=== PATIENT | female | born 1965 | race Caucasian/White ===

== ENCOUNTER 2024-01-19 09:41 | Emergency (ER) | payer OTHER, SELFPAY ==
[2024-01-19 09:47] VITALS: BP 115/65
--- NOTE | 2024-01-19 11:00 | ED.GENMED ---
History of Present Illness
General
Chief Complaint: Abdominal Pain
Source: patient
Exam Limitations: none
Time Seen by Provider: 01/19/24 10:51
History of Present Illness
History of Present Illness:
58-year-old female presents with 3 to 4 days worth of left-sided abdominal pain worse with eating. No nausea or vomiting. No fevers or chills. Seen initially at an urgent care and sent here for evaluation. She denies any urinary symptoms. No
prior abdominal surgical history. No other complaints at this time
Past History
Past History
ED Past Medical History: Cancer (skin), Other (Kidney stone, kidney cyst) and Other
Social History
Alcohol: None
Personal:
Living: with family
Employment: Employed
Phy Exam
Physical Exam
Physical Exam:
General: Well-appearing female no acute respiratory distress
HEENT: Normocephalic atraumatic
Heart: Regular rate and rhythm no murmurs
Lungs: Clear no wheeze
Abdomen soft tender to the left mid abdomen no guarding rebound normal bowel sounds nondistended no costovertebral angle tenderness
Extremities: No cyanosis
Course
Orders/Labs/Results
Orders:
Orders
01/19/24 10:59
CT Abd/pelvis W Iv Cont Urgent
Comment:
Reason For Exam: left abdominal pain
0.9% Sodium Chloride 500 ml [Nss] 500 ml IV BOLUS
Ketorolac [Toradol] 15 mg IV NOW STA
01/19/24 11:14
Complete Blood Count/With Diff Urgent
Comprehensive Metabolic Panel Urgent
Urinalysis Reflex To Culture Urgent
Date Specimen was Collected: 01/19/24
Time Specimen was Collected: 11:06
Abnormal Lab Results
01/19/24
11:14
Hct 36.1 L %
(37.0-47.0)
01/19/24 11:14
01/19/24 11:14
Vital Signs
Initial and Last Documented VS:
Initial Vital Signs
Temp Pulse Resp BP Pulse Ox
98.4 F 60 18 115/65 96
01/19/24 09:47 01/19/24 09:47 01/19/24 09:47 01/19/24 09:47 01/19/24 09:47
Last Documented Vital Signs
Temp Pulse Resp BP Pulse Ox
98.4 F 60 18 101/61 96
01/19/24 09:47 01/19/24 09:47 01/19/24 09:47 01/19/24 13:24 01/19/24 09:47
MDM/Problems Addressed
Differential Diagnosis Includes:
Left-sided abdominal pain. This is an acute condition. She does have a history of diverticulitis and this feels similar. This could be in the differential as well as colitis versus bowel obstruction versus renal colic
Will check labs. Give Toradol for pain and order CT of abdomen
*Critical Care Note
Total Time (30-74mins, 75-104mins- exclusive of procedures): Not Applicable
Update Note
Update Note:
CT demonstrates simple acute uncomplicated diverticulitis. Labs reviewed without significant finding. Patient remained stable. She had good relief 3 years ago when she was treated with Augmentin. Will cover with the same regimen. Return
precautions were given
ED Attending Note
-
Portions of this chart may have been created with voice recognition software.� Occasional wrong word or��sound alike� substitutions may have occurred due to the inherent limitations of voice recognition software.
Discharge Plan
Departure
Patient Disposition: Home (Routine Discharge)
Date of Disposition: 01/19/24
Time of Disposition: 14:19
Patient with high blood pressure during this ER visit?: No
Discharge Problem:
Acute diverticulitis
Instructions: Diverticulitis (DC)
Prescriptions:
New
amoxicillin-pot clavulanate 875-125 mg tablet
1 tab PO BID Qty: 20 0RF
No Action
multivitamin [Ubj-Jgehrq-Shisj] 1 EACH tablet
1 ea PO DAILY
[id number]-epa-fish oil 1 EACH capsule
1 ea PO Q48H
Biotin
1,000 mcg PO Q48H
Glucosamine & Chondroitin Cap
2,000 mg PO Q48H
metronidazole 500 MG tablet
500 mg PO TID Qty: 21 0RF
levofloxacin 500 MG tablet
500 mg PO DAILY Qty: 7 0RF
amoxicillin-pot clavulanate 1 TABLET tablet
1 tab PO Q12 Qty: 20 0RF
Referrals:
Ilia Burciaga MD [Family Provider] -
Activity Restrictions/Additional Instructions:
Drink plenty clear liquids. Use antibiotic as directed. Please return here for increasing pain vomiting or fever
Interventions
Interventions:
*Risk Screen - Suicide Last Done: 01/19/24 11:16
*General Assessment Last Done: 01/19/24 11:16
*Neglect/Abuse Screening Last Done: 01/19/24 11:16
*ED COVID-19 Vaccine History Last Done: 01/19/24 11:16
IT-Lcbxxc-Evufhnwtfk Assessment Last Done: 01/19/24 11:30
Discharge Date and Time
Print Language: GAMBIAN
[2024-01-19] MEDS: TORADOL 15 MG IV (11:14)
[2024-01-19] MEDS: NSS 500 IV (11:14)
[2024-01-19 11:26] VITALS: BP 134/70
[2024-01-19 11:41] LABS: Urine Albumin Negative (Neg - Trace); Urine Bilirubin Negative (Negative); Urine Character Clear (Clear); Urine Color Yellow; Urine Glucose Negative (Negative); Urine Ketone Negative (Negative); Urine Leukocyte Negative (Negative); Urine Nitrite Negative (Negative); Urine Occult Blood Negative (Negative); Urine Specific Gravity 1.005 (<1.030); Urine Urobilinogen Negative (Neg - 1+)
[2024-01-19 11:48] LABS: % Basophils 0.6 % (0-2); % Eosinophils 1.5 % (0-6); % Immature Granulocytes 0.2 % (0-0.5); % Lymphocytes 22.6 % (20.5-51.1); % Monocytes 9.1 % (1.7-9.3); Absolute Eosinophils 0.1 10^3/uL (0-0.7); Absolute Lymphocytes 1.5 10^3/uL (1.2-3.4); Absolute Monocytes 0.6 10^3/uL (0.1-0.6); Absolute Neutrophils 4.4 10^3/uL (1.4-6.5); Hematocrit 36.1 % (37.0-47.0); Hemoglobin 12.5 g/dL (12.0-16.0); Mean Corp Hgb Conc. 34.6 g/dL (33.0-37.0); Mean Corpuscular Volume 83.8 fL (81.0-99.0); Mean Platelet Volume 10.3 fL (7.4-10.4); Nucleated Red Blood Cells % 0 %; Platelet Count 236 10^3/uL (130-400); Red Blood Cell Count 4.31 10^6/uL (4.20-5.40); Red Cell Dist. Width 13.2 % (11.5-14.5); White Blood Cell Count 6.6 10^3/uL (4.8-10.8)
[2024-01-19 12:00] VITALS: BP 96/65
[2024-01-19 12:00] LABS: ALT (SGPT) 18 U/L (0-35); AST (SGOT) 29 U/L (14-36); Albumin 4.3 g/dl (3.5-5.0); Alkaline Phosphatase 70 U/L (38-126); Blood Urea Nitrogen 13 mg/dl (7-17); Calcium 9.6 mg/dl (8.4-10.2); Carbon Dioxide 25 mmol/L (22-30); Chloride 103 mmol/L (98-107); Glucose 90 mg/dl (70-99); Potassium 3.9 mmol/L (3.5-5.1); Sodium 139 mmol/L (135-145); Total Bilirubin 0.7 mg/dl (0.2-1.3); Total Protein 6.6 g/dl (6.3-8.2); eGFR > 60.00
[2024-01-19 13:00] VITALS: BP 95/54
[2024-01-19 13:24] VITALS: BP 101/61
[2024-01-19] MEDS: AUGMENTIN 875 MG/125 MG 1 TABLET PO (14:28)
== END 2024-01-19 14:44 | disposition home or self-care (01) ==
LOC: EMR 09:41
PROVIDERS: Physician Assistant; EMERGENCY PHYSICIAN Emergency Medicine; FAMILY PHYSICIAN Family Medicine
DX: K57.32 Diverticulitis of large intestine without perforation or abscess without bleeding (principal); N28.1 Cyst of kidney, acquired; Z85.828 Personal history of other malignant neoplasm of skin; Z87.442 Personal history of urinary calculi
CPT/HCPCS: 99285; 96361; 96374; 74177; 80053; 81003; 85025; Q9967

== ENCOUNTER → 2024-04-19 11:03 | Outpatient (REF) | payer OTHER, SELFPAY | LOC: HWRAD 11:03 | PROVIDERS: ATTENDING PHYSICIAN Internal Medicine | DX: N28.1 Cyst of kidney, acquired (principal) | CPT/HCPCS: 76775 ==

== ENCOUNTER → 2024-08-25 10:07 | Outpatient (REF) | payer OTHER, SELFPAY | LOC: HWWDC 10:07 | PROVIDERS: ATTENDING PHYSICIAN Internal Medicine | DX: Z12.31 Encounter for screening mammogram for malignant neoplasm of breast (principal); M85.89 Other specified disorders of bone density and structure, multiple sites | CPT/HCPCS: 77063; 77067 ==